=== PATIENT | female | born 1940 | race Caucasian/White ===

== ENCOUNTER 2017-08-23 09:25 | Day surgery (SDC) | payer OTHER, MEDICAID ==
[2017-08-23] MEDS ORDERED: TETRACAINE 0.5% OPHTH 1 DOSE AFFEYE ONE ×3 (10:03→12:29)
[2017-08-23] MEDS ORDERED: VIGAMOX 0.5% OPHTH 1 DOSE AFFEYE ONE ×5 (10:05→12:44)
[2017-08-23] MEDS ORDERED: PROLENSA OPHTH 1 DOSE AFFEYE ONE (10:16)
[2017-08-23] MEDS ORDERED: ALPHAGAN-P OPHTH 1 DOSE AFFEYE ONE (10:18)
[2017-08-23] MEDS ORDERED: NS 500 ML IV 500 ML IV ONE (10:18)
[2017-08-23] MEDS ORDERED: AK-DILATE 2.5% OPHTH 1 DOSE OP ONE ×3 (10:20→10:25)
[2017-08-23] MEDS ORDERED: MYDRIACIL OPHTH 1 DOSE AFFEYE ONE ×3 (10:20→10:25)
[2017-08-23] MEDS ORDERED: CYCLOGYL 1% OPHTH 1 DOSE OP ONE ×3 (10:20→10:25)
[2017-08-23] MEDS ORDERED: BETADINE OPHTH SOLN 5% EACHEYE ONE (12:22)
[2017-08-23] MEDS ORDERED: BSS OPHTH (PLAIN) 500 ML with VANCOMYCIN HCL 500 MG VIAL 25 MG, ADRENALINE CHL INJ 1 MG IR ONE ×3 (12:29)
[2017-08-23] MEDS ORDERED: DUOVISC IO ONE (12:29)
[2017-08-23] MEDS ORDERED: XYLOCAINE-MPF 1% IJ ONE (12:29)
[2017-08-23] MEDS ORDERED: ADRENALINE CHL INJ IJ ONE (12:29)
[2017-08-23] MEDS ORDERED: DIPRIVAN VIAL ONE (15:26)
[2017-08-23 16:45] VITALS: BP 155/72
== END 2017-08-23 13:05 | disposition home or self-care (01) ==
LOC: SURG1 09:25
PROVIDERS: ATTEND Ophthalmology
PROC: 08DK3ZZ Extraction of Left Lens, Percutaneous Approach (ICD-10-PCS; principal; 2017-08-23 16:45)
PROC: 08RK3JZ Replacement of Left Lens with Synthetic Substitute, Percutaneous Approach (ICD-10-PCS; principal; 2017-08-23 16:45)
DX: H25.12 Age-related nuclear cataract, left eye (principal); H25.012 Cortical age-related cataract, left eye; H25.042 Posterior subcapsular polar age-related cataract, left eye
CPT/HCPCS: 99100; A4217; J0170; J3370; J3490